=== PATIENT | male | born 1990 ===

== ENCOUNTER 2020-07-12 06:10 | Emergency (ER) | payer OTHER ==
[~2020-07-12] VITALS: Ht 182.9 cm; Wt 79.4 kg
[2020-07-12 06:39] VITALS: Ht 182.9 cm; Wt 79.4 kg
[2020-07-12 07:15] VITALS: BP 148/94
== END 2020-07-12 07:15 | disposition other institution (70) ==
LOC: ED 06:10
DX: Z02.89 Encounter for other administrative examinations (principal)